=== PATIENT | male | born 1990 | race Two or more races ===

== ENCOUNTER 2016-12-24 08:30 | Emergency (ER) | payer SELFPAY ==
[2016-12-24 09:35] LABS: ABSOLUTE NEUTROPHIL COUNT 11.1 K/mm3 (1.8-7.7); BASO # 0.1 K/mm3 (0.0-0.2); BASO % 0.6 % (0.2-1.0); EOS # 0.1 (0.0-0.5); EOS % 0.6 % (0.9-2.9); HEMATOCRIT 46.1 % (32.0-52.0); IMM NEUT # 0.1 K/mm3 (0-0.2); IMM NEUT% 0.7 % (0-1); LYMPH # 1.6 (1.0-4.8); LYMPH % 11.1 % (15-45); MEAN CELL VOLUME 92.2 fl (80.0-94.0); MEAN CORPUSCULAR HGB CONC 34.7 g/dl (33.0-37.0); MEAN PLATELET VOLUME 9.7 fl (7.4-10.4); MONO % 7.3 % (4-12); NEUT % 79.7 % (43-75); PLATELET COUNT 249 K/mm3 (130-400); RED CELL DISTRIBUTION WIDTH 11.9 % (11.5-14.5)
[2016-12-24 09:48] LABS: CALCIUM 9.5 mg/dL (8.6-10.3)
--- NOTE | 2016-12-24 10:25 | RAD ---
EXAMINATION:FOOT LEFT 3 VIEWS CLINICAL INDICATION: Redness tenderness and swelling left foot. COMPARISONS:none FINDINGS: No fracture or focal destruction is identified. Joint space relationships of the foot are maintained. No repeat foreign bodies identified. No soft tissue gas is seen. IMPRESSION: Negative radiographic examination of the left foot.
[2016-12-24] MEDS ORDERED: SULFAMETHOXAZOLE 800 MG/TRIMETHOPRIM 160 MG TABLET ONE (10:27)
[2016-12-24] MEDS ORDERED: CEPHALEXIN 500 MG CAPSULE ONE (10:27)
== END 2016-12-24 10:53 | disposition home or self-care (01) ==
LOC: ED 08:30
DX: L03.116 Cellulitis of left lower limb (principal); B35.3 Tinea pedis